=== PATIENT | female | born 1980 | race Caucasian/White ===

== ENCOUNTER → 2021-09-16 | Outpatient (CLI) | payer BC, MEDICAID | LOC: M PLAIMG 13:56 | PROVIDERS: ATTEND Internal Medicine Pulmonary Disease | DX: J45.20 Mild intermittent asthma, uncomplicated (principal) ==

== ENCOUNTER → 2022-05-12 | Outpatient (CLI) | payer BC, MEDICAID ==
[2022-05-12 16:30] LABS: FREE T4 0.9 NG/DL (0.89-1.76); THYROID STIMULATING HORMONE 0.725 uIU/ML (0.55-4.78)
== END ==
LOC: M PLALAB 11:20
PROVIDERS: ATTEND Internal Medicine Endocrinology, Diabetes & Metabolism
DX: R94.6 Abnormal results of thyroid function studies (principal)